=== PATIENT | female | born 2000 ===

== ENCOUNTER → 2022-12-20 | Outpatient (CLI) | payer OTHER | END | disposition home or self-care (01) | LOC: LAB SHORT 17:51 → LAB 17:51 | DX: R00.0 Tachycardia, unspecified (principal) | CPT/HCPCS: 84443 ==

== ENCOUNTER → 2024-02-27 | Outpatient (CLI) | payer OTHER | END | disposition home or self-care (01) | LOC: LAB SHORT 10:46 → LAB 10:46 | DX: L08.9 Local infection of the skin and subcutaneous tissue, unspecified (principal) | CPT/HCPCS: 87070; 87077; 87147; 87186; 87205 ==

== ENCOUNTER 2024-08-25 11:36 | Emergency (ER) | payer OTHER ==
[~2024-08-25] VITALS: Ht 165.1 cm; Wt 78.0 kg
[2024-08-25 12:12] VITALS: BP 131/93
[2024-08-25] MEDS ORDERED: HYDHCL25 PO (12:14)
[2024-08-25] MEDS ORDERED: DRIZALMA SPRINK20 MG PO (12:14)
[2024-08-25] MEDS ORDERED: BUSP5 PO (12:14)
[2024-08-25 12:52] LABS: CORONAVIRUS COVID-19 AG Negative (NEGATIVE); INFLUENZA A AG Negative (NEGATIVE); INFLUENZA B AG Negative (NEGATIVE)
[2024-08-25] MEDS ORDERED: BENZ100A PO (14:25)
== END 2024-08-25 14:30 | disposition home or self-care (01) ==
LOC: ER 11:36
PROVIDERS: Physician Assistant
DX: J06.9 Acute upper respiratory infection, unspecified (principal); Z79.899 Other long term (current) drug therapy; Z11.52 Encounter for screening for COVID-19
CPT/HCPCS: 71046; 87428-QW; 99283-25